=== PATIENT | male | born 1980 | race Caucasian/White ===

== ENCOUNTER 2023-01-06 11:28 | Emergency (ER) | payer OTHER, SELFPAY ==
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
--- NOTE | ~2023-01-06 | US_ITS ---
EXAMINATION: US VENOUS WITH DOPPLER UPPER EXTREMITY, LEFT CLINICAL INFORMATION: Upper extremity swelling olecranon fracture COMPARISON: None available. TECHNIQUE: Ultrasound of the upper extremity is performed using compression sonography and color and pulse Doppler flow with assessment of augmentation of flow. There is also imaging and Doppler assessment of the jugular and subclavian veins. Spectral analysis with color-flow imaging is performed. FINDINGS: Respiratory variation, normal compression, and augmented flow are noted throughout the upper extremity including the axillary, brachial, cubital, and radial and ulnar veins. There is normal flow in the internal jugular and subclavian veins. There is no visible deep or superficial thrombophlebitis. If the patient's symptoms progress, a followup ultrasound in 5 -7 days might be of value to exclude proximal propagation from a nonvisualized distal arm vein. US/US venous duplex UE LT IMPRESSION: No DVT demonstrated in the left upper extremity
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
[2023-01-06 12:06] VITALS: BP 142/88; PULSE 81; RESP 19; TEMP 36.6; O2SAT 98; BMI 31.3
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
--- NOTE | 2023-01-06 17:06 | PC.NURSE ---
posterior long arm splint applied to left arm, arm flexed at 45 degree angle placed in splint for comfort and support
== END 2023-01-06 17:07 | disposition home or self-care (01) ==
PROVIDERS: Emergency Provider Student in an Organized Health Care Education/Training Program
DX: S52.022A Displaced fracture of olecranon process without intraarticular extension of left ulna, initial encounter for closed fracture (principal); V18.0XXA Pedal cycle driver injured in noncollision transport accident in nontraffic accident, initial encounter; M79.602 Pain in left arm; Y93.55 Activity, bike riding; Y92.9 Unspecified place or not applicable; Y99.9 Unspecified external cause status
CPT/HCPCS: 29105; 73080; 73090; 93971; 99281; 99284

== ENCOUNTER 2023-01-10 13:35 | Outpatient (AMB) | payer OTHER, SELFPAY ==
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
[2023-01-10 13:49] VITALS: BMI 31.3
== END 2023-01-10 14:49 | disposition home or self-care (01) ==
PROVIDERS: Visit Provider Physician Assistant
DX: S52.022A Displaced fracture of olecranon process without intraarticular extension of left ulna, initial encounter for closed fracture (principal)
CPT/HCPCS: 24670; 99204

== ENCOUNTER → 2023-01-10 13:35 | Outpatient (BNVA) | payer SELFPAY | PROVIDERS: Visit Provider Physician Assistant | DX: S52.022A Displaced fracture of olecranon process without intraarticular extension of left ulna, initial encounter for closed fracture (principal) | CPT/HCPCS: 24670 ==

== ENCOUNTER → 2023-01-14 11:47 | Day surgery (SDC) | payer OTHER, SELFPAY ==
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
[2023-01-14] VITALS (8 sets, daily range): BP systolic 110–128; BP diastolic 58–75; PULSE 84–98; RESP 16–18; TEMP 36.1–36.7; O2SAT 95–98; BMI 31.3
--- NOTE | ~2023-01-14 | FL_ITS ---
EXAMINATION: XR FLUOROSCOPY WITH IMAGES CLINICAL INFORMATION: Elbow ORIF. COMPARISON: Previous x-ray 01/06/2023 TECHNIQUE: Fluoroscopy Supervised By: Dr. Ace Ortiz. Fluoroscopy Time: 0.2 minutes. Cumulative Dose: 0.616 mGy. DAP: 0.05687 Gycm2. Images: 3. FINDINGS: Images demonstrate ORIF with pins and cerclage wire transfixing the olecranon fracture with improved alignment. FL/FL guidance in OR IMPRESSION: Fluoroscopy guidance for ORIF of olecranon fracture.
[2023-01-14] MEDS: Lactated Ringers 1,000 ML 100 ML IVCONT (12:24)
[2023-01-14] MEDS: Albuterol Sulfate (0.083%) 2.5 MG/3 ML VIAL.NEB INHALE (12:36)
--- NOTE | 2023-01-14 14:40 | P.BOP_ITS ---
Brief Operative Note Date of Service: 01/14/23 Pre-op diagnosis: Left olacranon fracture Post-op diagnosis: same Procedure: ORIF left olecranon Implants: K wire .0625 x 2 Cerclage wire 16g x 1 Surgeon: Ace Ortiz MD Anesthesia: GLMA and regional Was an Vehicle Trimmer used for this Procedure?: Yes Vehicle Trimmer: Marina Perez Estimated blood loss (mL): 25 Tourniquet time (min): 35 IV fluids (mL): 750 Pathology: none sent Condition: stable Disposition: PACU
--- NOTE | 2023-01-14 14:41 | MHC.SHP ---
Pre-Procedural Eval Section A Date of Service: 01/14/23 The patient is an INPATIENT: No Changes since office visit: No Cold of Flu in the past 2 weeks, No New Medical Problems, No Changes in Medication and No Patient answered all questions The History & Physical has been completed within 30 days and I have reviewed it.: Yes Section B Chief Complaint: Displaced fracture of olecranon process without in Allergies: Allergies Allergy/AdvReac Type Severity Reaction Status Date / Time No Known Allergies Allergy Verified 01/14/23 11:53 Plan I have reviewed the history and physical and performed a pertinent physical examination on my patient. No changes have occurred unless specified. Time Spent With Patient Time: Total time managing care of this patient today ____ minutes.
--- NOTE | 2023-01-14 15:50 | PHA.MEDREC ---
Pharmacy Consult ? Medication Reconciliation Pharmacy has reviewed the medication reconciliation completed by nursing.
[2023-01-14] MEDS: 0.9 % Sodium Chloride Flush 3 ML SYRINGE IVFLUSH ×2 (16:37→20:32)
[2023-01-14] MEDS: ceFAZolin Sodium/Dextrose,Iso 2 GM/50 ML PIGGYBACK IV (18:45)
[2023-01-14] MEDS: Celecoxib 200 MG CAPSULE PO (20:32)
[2023-01-14] MEDS: Docusate Sodium 100 MG CAPSULE PO (20:32)
[2023-01-15 03:49] VITALS: BP 115/59; PULSE 65; RESP 18; TEMP 36.7; O2SAT 94
[2023-01-15 06:42] LABS: MANUAL DIFF FLAG NO
[2023-01-15 06:43] LABS: Basophils Percent Auto 0.3 % (0-2); Eosinophils Percent Auto 0.1 % (0-4); Hemoglobin 15.5 g/dl (14.0-18.0); Imm Gran Abs Auto 0.04 X10*3/uL (0.00-0.03); Imm Gran Pct Auto 0.4 % (0.0-0.4); Lymphocytes Absolute Auto 1.3 X10*3/uL (1.2-4.9); Mean Corpuscular HGB Conc 35.2 g/dl (31.0-36.0); Mean Corpuscular Hemoglobin 31.8 pg (27.0-33.0); Mean Corpuscular Volume 90.3 fL (80.0-98.0); Mean Platelet Volume 9.6 fL (9.4-12.4); Monocytes Absolute Auto 0.7 X10*3/uL (0.1-1.2); Monocytes Percent Auto 6.1 % (2-11); Neutrophils Absolute Auto 8.9 x10*3/uL (2.0-8.3); Neutrophils Percent Auto 81.1 % (45-73); Platelet Count 265 X10*3/uL (160-400); Red Blood Count 4.87 X10*6/uL (4.60-5.80); Red Cell Distribution Width 12.2 % (11.0-16.0)
[2023-01-15 06:55] LABS: Anion Gap 15 (12-20); Blood Urea Nitrogen 14 mg/dL (9-16); Calcium 9.6 mg/dL (8.4-10.2); Carbon Dioxide 20 mmol/L (22-29); Chloride 108 mmol/L (96-108); Creatinine Clr Calc Pharmacy 104.1; Estimated Glomerular Filt Rate > 60; Glucose Fasting 106 mg/dL (60-99); Potassium 4.5 mmol/L (3.3-5.1); Sodium 138 mmol/L (135-145)
[2023-01-15 07:20] VITALS: BP 127/57; PULSE 72; RESP 18; TEMP 36.6; O2SAT 96
[2023-01-15] MEDS: Docusate Sodium 100 MG CAPSULE PO (08:27)
[2023-01-15] MEDS: Celecoxib 200 MG CAPSULE PO (08:27)
[2023-01-15] MEDS: 0.9 % Sodium Chloride Flush 3 ML SYRINGE IVFLUSH (08:28)
--- NOTE | 2023-01-15 10:19 | HO.POSTANES ---
Post Anesthesia Evaluation Post Anesthesia Evaluation Date of Service: 01/15/23 Vital Signs: Vital Signs Temp Pulse Resp BP Pulse Ox O2 Del Method 01/15/23 07:20 97.9 F 72 18 127/57 L 96 Room Air 01/15/23 03:49 98.0 F 65 18 115/59 L 94 Room Air Anesthesia: General LMA Mental Status: Awake Pain Control: Satisfactory Nausea/Vomiting: None Hydration: Adequate Anesthesia-Related Issues: No Anes. Related Issues
--- NOTE | 2023-01-15 13:52 | MHC.CM.PN ---
PT REPORTS HE LIVES ALONE AND IS INDEPENDENT HE HAS A CM THROUGH [email or web address] ON WHO HELPS HIM WITH TRANSPORTATION HIS HOUSING IS ALSO SUPPORTED THROUGH [employer], HOWEVER IT IS INDEPENDENT PT USED NO DME EXTRUSION MANAGER HE DECLINES TO COMPLETE A HCP HE DOES NOT HAVE A PCP HE WOULD BE WILLING TO GO TO ONE ON [facility] IF HE IS ABLE TO USE THE SHUTTLE TASK SENT TO [facility] TO DETERMINE IF AN APPT COULD BE MADE PT WILL DC HOME TODAY AND A LYFT WAS ARRANGED FOR HIM HE REPORTED A PLAN TO WALK TO THE PHARMACY FOR HIS MEDS, CM PROVIDED BUS PASSES PT WILL DC HOME TODAY WITH NO NEW SERVICES VIA LYFT CM DID ADD THE [facility] SHUTTLE INFORMATION TO PTS DC FOR HIS FOLLOW UP CARE APPTS
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
--- NOTE | 2023-01-21 14:42 | PM.DS ---
DS: Providers Provider Date of Service: 01/15/23 Primary care physician: None Physician DS: Diagnosis Discharge Diagnosis (1) Closed olecranon fracture: Status: Inactive DS: Summary Hospital Course Hospital Course: The patient underwent a successful ORIF Left elbow on 01/14/23, was transferred to PACU and then to the floor to recover. During their stay, their vitals were stable, afebrile at 97.9 . Labs were unremarkable, H/H 15.5/44.0 . POD 1 splint was clean, dry and intact. His block had worn off and he had full sensation and movement in the wrist and fingers. The patient will be discharged home with an out patient follow up on : 01/27/23 10:30 [facility] Orthopedic Surgeons Marina Perez PA-C Time Spent with Patient Time attestation: Total time managing care of this patient today ____ minutes. Discharge coordination time: Less than 30 minutes Quality: Safe Use of Opioids Does Pt have an Active Cancer Diagnosis on the Problem List?: No Quality: Stroke Does the patient have a stroke diagnosis?: No Physical Exam Vital Signs: Vital Signs: Last Vital Signs Temp 97.9 F 01/15/23 07:20 Pulse 72 01/15/23 07:20 Resp 18 01/15/23 07:20 BP 127/57 L 01/15/23 07:20 Pulse Ox 96 01/15/23 07:20 O2 Del Method Room Air 01/15/23 07:20 BMI result Body Mass Index 31.3 Discharge Plan Discharge Patient Disposition: Home, Self-Care Referrals: [facility] ([facility]) TRANSPORTATION [Other] (ASK FOR TRANSPORTATION EXT 8850 WHEN YOU CALL. GIVE THEM AT LEAST 48 HOURS NOTICE AND THEY WILL TRANSPORT YOU TO AND FROM HOME AND APPOINTMENTS ANYWHERE ON [facility].) Marina Perez PA-C [Physician Circuit Court Magistrate] - 1 Week (01/27/23 10:30 [facility] Orthopedic Surgeons Marina Perez PA-C) Physician,Jeffrey [Primary Care Provider] - 1 Week Discharge Medications: New celecoxib 200 mg Capsule 200 mg PO BID 30 Days Qty: 60 0RF acetaminophen 325 mg Tablet 650 mg PO Q6H PRN (Reason: Pain, Mild (Pain Scale 1-3)) 30 Days Qty: 240 0RF docusate sodium 100 mg Capsule 100 mg PO BID 7 Days Qty: 14 0RF oxycodone 5 mg Tablet 5 mg PO Q8H PRN (Reason: Pain, Moderate(Pain Scale 4-6)) 7 Days Qty: 21 0RF Rx Instructions: Partial Fill upon patient request. Discharge Orders: Discharge Order (Routine); Ordered 01/15/23 Ordered By: Marina Perez Diet: Regular diet Activity on Discharge: Use cane or walker Stand Alone Forms: Patient Portal Discharge page
== END | disposition home or self-care (01) ==
LOC: HO.SSS 11:48 → HO.S3 01-15 13:00 → HO.SSS 01-21 14:43
PROVIDERS: Physician Assistant; Visit Provider Orthopaedic Surgery
PROC: (CPT 24685; principal; 2023-01-14 13:30)
DX: S52.022A Displaced fracture of olecranon process without intraarticular extension of left ulna, initial encounter for closed fracture (principal); V19.9XXA Pedal cyclist (driver) (passenger) injured in unspecified traffic accident, initial encounter; Y93.55 Activity, bike riding; Y92.9 Unspecified place or not applicable; Y99.8 Other external cause status; Z23 Encounter for immunization
CPT/HCPCS: 24685; 36415; 80048; 85025; 90686; 94640; J0690; J1100; J2405; J3010

== ENCOUNTER → 2023-01-14 11:47 | Outpatient (BNV) | payer OTHER, SELFPAY | PROVIDERS: Visit Provider Orthopaedic Surgery | DX: S52.023A Displaced fracture of olecranon process without intraarticular extension of unspecified ulna, initial encounter for closed fracture (principal) | CPT/HCPCS: 24685; 99024; 99212 ==

== ENCOUNTER 2023-01-27 08:53 | Outpatient (REF) | payer OTHER, SELFPAY | END 2023-01-27 08:54 | disposition home or self-care (01) | LOC: HO.HOSX 08:53 | PROVIDERS: Visit Provider Physician Assistant | DX: M25.522 Pain in left elbow (principal); Z47.89 Encounter for other orthopedic aftercare; Z98.890 Other specified postprocedural states; Z87.81 Personal history of (healed) traumatic fracture | CPT/HCPCS: 73080 ==

== ENCOUNTER 2023-01-27 09:33 | Outpatient (AMB) | payer OTHER, SELFPAY ==
--- NOTE | 2023-01-27 09:58 | MHC.OFFVIS ---
Intake Intake Visit Reasons: PO ORIF LT elbow 01/14/23NE Intake Note: Caitlyn 42 year old male who presents today for a post operative left elbow ORIF, DOS 01/14/23 NE. Patient reports he is doing very well, states little to no pain. Allergies No Known Allergies Allergy (Verified 01/27/23 09:59) HPI PO ORIF LT elbow 01/14/23NE HPI Details 42-year-old male who returns to the office today for post-op left elbow ORIF, 01/14/[address] Ortiz. He states he has minimal pain and is doing well overall. He has no other concerns. [facility]LY [facility] Medical History No pertinent past medical history Surgical History No pertinent past surgical history Social History Household Members: None Housing: Apartment Do you presently have visiting nurse or other home services: No Patient Tobacco Use Status: Current everyday Tobacco user Tobacco use type: Cigarette Cigarette Packs Per Day: 1.5 Cigarettes Per Day: 30.0 Years Smoked: 25 e-Cigarette/Vaping Use: Currently Using Second Hand Smoke Exposure: No service: Yes Current occupational status: unemployed Current occupation: rt hand Review of Systems Const All systems reviewed & are unremarkable except as noted in HPI and below Physical Exam Extrem Other: Left elbow: Incision clean, dry and intact. No erythema or drainage. He is lacking 20 degrees extension and he can flex to about 100 degrees. No pain with supination or pronation. NVI. Results Reviewed Results Reviewed: X-rays of the left elbow obtained in the office today show intact hardware with stable reduction of fracture. Assessment & Plan Assessment & Plan (1) S/P ORIF (open reduction internal fixation) fracture: Code(s): Z98.890 - Other specified postprocedural states; Z87.81 - Personal history of (healed) traumatic fracture Plan X-rays reviewed with Dr. Ortiz in the office today. Denisse removed today, steri strips applied. I did educate the patient on the importance of avoiding any type of lifting with the left arm as it will displace the fracture fragment. I explain to him things that may be safe to carry would be his tablet, a cellphone, or a cup of coffee. Anything that puts tension on his elbow is too much. He does express understanding I also explain to him how to work on some gentle ROM techniques which do not apply force beyond what he is able to already obtain. I did recommend a course of occupational therapy however he declined, feeling as though he is able to do it on his own. He will return to see us back in 4 weeks with new x-rays, sooner if needed. Orders: Orders XR elbow LT min 3V Today M25.522 - Pain in left elbow Patient Instructions: Scribed for Marina Perez PA-C, by Triston Summers biomedical equipment technician, on 01/27/2023 at 10:30 AM EST. IMarina PA-C, have personally reviewed and agree with the information entered by the scribe. Coding Level of Care Code Global (76024) Diagnoses S/P ORIF (open reduction internal fixation) fracture Z98.890; Z87.81
== END 2023-01-27 10:31 | disposition home or self-care (01) ==
PROVIDERS: Visit Provider Physician Assistant
DX: Z98.890 Other specified postprocedural states (principal); Z87.81 Personal history of (healed) traumatic fracture
CPT/HCPCS: 99024

== ENCOUNTER 2023-02-24 06:10 | Outpatient (REF) | payer OTHER, SELFPAY | END 2023-02-24 06:11 | disposition home or self-care (01) | LOC: HO.HOSX 06:10 | PROVIDERS: Visit Provider Physician Assistant | DX: Z13.89 Encounter for screening for other disorder (principal) ==